=== PATIENT | male | born 1985 | race Caucasian/White ===

== ENCOUNTER 2024-01-15 19:10 | Outpatient (CLI) | payer BC | END 2024-01-15 23:59 | disposition short-term general hospital (02) | LOC: EMS 19:10 | DX: S89.92XA Unspecified injury of left lower leg, initial encounter (principal); W18.39XA Other fall on same level, initial encounter; Y92.838 Other recreation area as the place of occurrence of the external cause; F10.90 Alcohol use, unspecified, uncomplicated | CPT/HCPCS: A0425; A0429 ==